=== PATIENT | male | born 1975 | race Caucasian/White ===

== ENCOUNTER 2025-03-16 06:32 | Outpatient (REF) | payer OTHER, SELFPAY ==
--- NOTE | ~2025-03-16 | XR_ITS ---
EXAMINATION: XR SHOULDER, LEFT CLINICAL INFORMATION: M25.512 - Pain in left shoulder COMPARISON: None available. TECHNIQUE: AP, scapular Y, and axillary views of the left shoulder. FINDINGS: There is no dislocation or AC joint separation. There are no degenerative changes. XR/XR shoulder LT min 2V IMPRESSION: Unremarkable left shoulder Electronically signed by: Fausto Zaragoza MD 03/16/2025 02:44 PM EDT
--- OUTSIDE RECORDS SUMMARY | 2025-03-17 06:35 | XMS_ITS | Clinical Summary ---
Author Organization [facility] Address [address] [place] [address] Phone Care Team Providers Care Chip Tuner Name Role Phone Bowen Serna MD Primary Care Provider [phone] Allergies Active Allergy Reactions Criticality Noted Date [...] 01/15/2021 Obstructive sleep apnea 01/15/2021 Overview (06/29/2024): [facility] Home Sleep Apnea Test: Date [...] Date Site/Laterality Comments OTHER SURGICAL HISTORY PROCEDURE: ND COLONOSCOPY FLX ABLATION TUMOR POLYP/OTHER LES OTHER [...] DX:Tubular adeno ma Substance abuse in remission ([facility] V24, [facility] V28) 07/29/2019 DX:Substance abuse in remiss ion ([facility]); COMMENT: Alcohol Depression 07/29/2019 DX:Depression GERD (gastroesophageal [...] AM EDT Office Visit Internal Medicine - [place] [address] [place] [address] Bowen Serna MD [address] [place] [address] Health Maintenance Due Date Last Done Comments [...] Maintenance Results * COLONOSCOPY Anesthesia - MAC; [facility] ENDOSCOPY (08/11/2024 9:38 AM EST) Anatomical Region Laterality Modality Endoscopy 08/11/2024 9:18 AM EST Impressions 08/11/2024 9:40 AM EST - Diverticulosis in the sigmoid colon. - Internal hemorrhoids. - The examination was otherwise normal. - No specimens collected. Recommendation: - Discharge patient to home. - Repeat colonoscopy in 10 years for surveillance. Narrative 08/11/2024 9:40 AM EST [facility] GI Patient Name: Lenard Mtz Procedure [...] verified by the physician, the nurse, the through freight engineer and the shale processing technician in the pre-procedure area in the [...] history of colonic polyps CPT copyright 2020 [employer]. All rights reserved. The codes documented in this report are preliminary and upon physical metallurgist review may be revised to meet current compliance requirements. Halchin Catherine MD 08/11/2024 9:40:26 AM This report has been signed electronically.Laurence Catherine MD Number of Addenda: 0 Note Initiated On: 08/11/2024 9:18 AM Scope Withdrawal Time: 0 hours 10 minutes 51 seconds Scope In: 9:24:25 AM Scope Out: 9:37:35 AM Endoscopy Department at [facility] - [address] [place] [id number] Procedure Note Laurence Catherine MD - 08/11/2024 [facility] Patient Name: Lenard Mtz Procedure [...] the physician, the nurse, theanesthetist and the shale processing technician in the pre-procedure area in the [...] history of colonic polyps CPT copyright 2020 [employer]. All rights reserved. The codes documented in this report are preliminary and upon physical metallurgist reviewmay be revised to meet current compliance requirements. Laurence Cathreine MD 08/11/2024 9:40:26 AM This report has been signed electronically.Laurence Catherine MD Number of Addenda: 0 Note Initiated On: 08/11/2024 9:18 AM Scope Withdrawal Time: 0 hours 10 minutes 51 seconds Scope In: 9:24:25 AM Scope Out: 9:37:35 AM Endoscopy Department at [facility] - [address] [place] [phone] IMPRESSION: - Diverticulosis in the sigmoid colon. - Internal hemorrhoids. - The examination was otherwise normal. - No specimens collected. Recommendation: - Discharge patient to home. - Repeat colonoscopy in 10 years forsurveillance. Laurence Catherine MD GI~PROCEDURE ORDERABLES Fin al Result * Annual [facility] Blood Test (04/23/2024) Annual [facility] Blood Test abstracted Historical Provider HEALTH MAINTENANCE Final Result * (ABNORMAL) Lipid panel (04/23/2024) Pathologist [facility] [place] LDL/HDL Ratio 4 0 - 4 Triglycerides 163(A) 0 - 150 mg/dL Cholesterol 188 0 - 200 mg/dL HDL 53 >=40 mg/dL LDL Cholesterol 103(A) 0 - 100 mg/dL Blood Venous blood specimen / Unknown [facility] Provider LAB BLOOD ORDERABLES Brea l Result * HIV Screening (10/09/2019) Pathologist [facility] [place] HIV Screening abstracted [facility] Provider HEALTH MAINTENANCE Final Result * Hepatitis C Screening (10/09/2019) [facility] Hepatitis C Screening abstracted [facility] Provider HEALTH MAINTENANCE Final Result from Last 3 Months or Most Recently Relevant to Health Maintenance Insurance PLAN Care Teams Chip Tuner Relationship Specialty Start Date End Date Bowen Serna MD PCP - General Internal Medicine 10/15/21
--- OUTSIDE RECORDS SUMMARY | 2025-03-17 06:35 | XMS_ITS | Encounter Summary ---
Author Organization [facility] Address [address] [place] [address] [address] [place] [address] Care Team Providers Care Stock Supervisor Name Role Phone Unavailable Primary Care Provider Unavailabl e Reason for Visit * Reason Onset Date Comments Appointment 07/14/2023 Encounter Details Date Type Department Care Team (Late st Contact Info) Description 07/14/2023 Telephone [facility] [address], [place] [phone] Lenard Carrillo DDS [address], [place] [phone] Appointment Social History Tobacco Use Types Packs/Day [...]
== END 2025-03-16 06:33 | disposition home or self-care (01) ==
LOC: HO.HOSX 06:32
PROVIDERS: Visit Provider Physician Assistant
DX: M25.512 Pain in left shoulder (principal); M75.22 Bicipital tendinitis, left shoulder
CPT/HCPCS: 73030; 99202

== ENCOUNTER 2025-03-16 08:28 | Outpatient (AMB) | payer OTHER, SELFPAY ==
--- NOTE | 2025-03-16 08:31 | MHC.OFFVIS ---
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 Patient was seen at [facility] for bilateral shoulder pain with the left being the worse. Today patient reports having a pinching sensation in his cuff area that has been present for 2 months. Denies any injury. He has tried icing and heat to alleviate his discomfort. No other treatments. 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 He denies injury, states he has pain with reaching and lifting the arm . He was seen at the urgent care and given naprosyn which he states has been helpful but he continues to have some discomfort. His pain was worse with sleeping and the medication helps. 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 5/5 rotator cuff strength neurovascularly intact. Results Reviewed Results Reviewed: X-rays of the left shoulder obtained in the office today and reviewed by me show a type 2 acromion Assessment & Plan Assessment & Plan (1) Biceps tendonitis on left: Code(s): M75.22 - Bicipital tendinitis, left shoulder Category: Medical Plan: Overall the patient is improving since his injury. I recommend he continue to modify activities as needed and I switched his naproxen over to Celebrex to help with his stomach irritation. I did recommend formal physical therapy which he declined at this time. If symptoms persist or worsen he can contact our office and I will write him a formal physical therapy order otherwise he will follow up as needed. Orders: Orders XR shoulder LT min 2V Today M25.512 - Pain in left shoulder Medications: New celecoxib (Celebrex) 200 mg PO BID 60 caps 3RF 30 days Coding Level of Care Code New Pt Level 3 (10528) Complex EM visit Add On G2211 Diagnoses Biceps tendonitis on left M75.22
--- OUTSIDE RECORDS SUMMARY | 2025-03-16 08:32 | XMS_ITS | Encounter Summary ---
Author Organization [facility] Address [address] [place] [address] [address] [place] [address] Care Team Providers Care High Density Talc Coater Operator Name Role Phone Unavailable Primary Care Provider Unavailabl e Reason for Visit * Reason Onset Date Comments Appointment 07/14/2023 Encounter Details Date Type Department Care Team (Late st Contact Info) Description 07/14/2023 Telephone [facility] [address] [place], [place] [id number] Lenard Carrillo DDS [address], [place] [id number] Appointment Social History Tobacco Use Types Packs/Day Years Used Date Smoking Tobacco: Former Cigarettes Smokeless Tobacco: Never Sex and Gender Information Value Date Recorded Sex Assigned at Male 07/15/2022 10:38 AM EDT Legal Sex Male 10:38 AM EDT Gender Identity Male 07/15/2022 10:38 AM EDT Sexual Orientation Straight 07/15/2022 10 :38 AM EDT documented as of this encounter Miscellaneous Notes * Telephone Encounter - Medina Van - 07/14/2023 11:14 AM EDT Patient has been calling off and on for extraction appt with Dr Carrillo. Schedule currently full. Appt has been requested since April. They state they haven't gotten a call back for scheduling. Reminded patient to call in about 2 weeks on a Friday to see if schedule has opened. Informed patient I would reach out to office with message documented in this encounter Plan of Treatment Not on file documented as of this encounter Visit Diagnoses Not on filedocumented in this encounter
--- OUTSIDE RECORDS SUMMARY | 2025-03-16 08:32 | XMS_ITS | Clinical Summary ---
Author Organization [facility] Address [address] [place] [address] Phone Care Team Providers Care Windows Vmware Engineer Name Role Phone Bowen Serna MD Primary Care Provider [phone] Allergies Active Allergy Reactions Criticality Noted Date Comments Grass Pollen 07/31/2021 Positive blood work Medications azelastine (ASTELIN) 137 mcg (0.1 %) nasal spray 2 Sprays by Each Nare route 2 times daily. Use in each nostril as directed 1 Active fexofenadine (JACKSON) 180 mg tablet Take 1 tablet (180 mg total) by mouth 1 (one) time each day. 1 Active ketotifen (ZADITOR) 0.025 % ophthalmic solution Place 1 Drop into both eyes 2 times daily as needed (itch or tear). 1 Active ibuprofen (ADVIL,MOTRIN) 600 mg tablet Take 1 Tab by mouth 2 times daily (with meals). 0 Active polyethylene glycol (Golytely) 236-22.74-6.74 -5.86 gram solution Take 4L by mouth once for one dose. May substitue any PEG. Starting at 6PM the night before your procedure drink 1 8oz glasses at your own pace until you complete half of the gallon. Finish 2nd half of the gallon 5 hours before your procedure. 4000 mL 4 Active bisacodyL (DULCOLAX) 5 mg EC tablet Take 2 tablets by mouth right before beginning bowel prep. See instructions provided by the office 2 tablet 4 Active amLODIPine-jeimy zepril (LOTREL) 5-10 mg per capsule TAKE 1 CAPSULE BY MOUTH EVERY DAY 90 capsule 1 5 Active Active Problems Problem Noted Date Diagnosed Date Tubular adenoma 06/29/2024 Precordial pain 06/05/2022 Left-sided back pain 05/31/2022 Rupture of flexor tendon of right hand 2 Nocturnal hypoxemia 01/15/2021 Obstructive sleep apnea 01/15/2021 Overview (06/29/2024): [facility] Home Sleep Apnea Test: Date 01/02/2021; Wt 215#; BMI 36; JAGDEEP (AHI) 66, AI 50; HI 17; Unclassified apneas 0; Obstructive apneas 387; Central apneas 0; Mixed apneas 0; hypopneas 129; average oxygen saturation 90% (lowest 68% with saturations <88% for 5% or more of study) - Obstructive Sleep Apnea - severe; mostly obstructive apneas and hypopneas; with sleep related hypoventilation by 2020 home sleep apnea test. 04/13/2021 UPPP and tonsillectomy with ENT. Pending Deviated nasal septum surgery July 2021. Hypertension 07/07/2020 Obesity (BMI 30.0-34.9) 07/07/2020 Dermatographia 03/13/2020 Pruritus 03/13/2020 Abnormal TSH 10/27/2019 Overview (06/29/2024): Needs repeat blood work in April 2020-blood work requested. No indication for levothyroxine Anxiety 07/29/2019 Depression 07/29/2019 GERD (gastroesophageal reflux disease) 9 IBS (irritable bowel syndrome) 07/29/2019 Premature ejaculation 07/29/2019 Substance abuse in remission (CMS/HCC V24, CMS/H CC V28) 07/29/2019 Overview (06/29/2024): Alcohol Immunizations Name Administration Dates Next Due Td Tetanus diptheria (Tdvax) 7yo and older 06/26 Tdap Tetanus diptheria acell ular pertussis (Boostrix; Adacel) 7yo and older 09/06/2016 Surgical History Surgery Date Site/Laterality Comments OTHER SURGICAL HISTORY PROCEDURE: [place] COLONOSCOPY FLX ABLATION TUMOR POLYP/OTHER LES OTHER SURGICAL HISTORY PROCEDURE: ---- HEMORRHOIDS ---- OTHER SURGICAL HISTORY PROCEDURE: HISTORY OTHER; COMMENT: septoplasty and reduction of inferior turbinates 08/01/[address] Curiel TENDON REPAIR Right HAND TONSILLECTOMY Medical History Medical History Date Comments Hemorrhoid DX:Hemorrhoid IBS (irritable bowel syndrome) 07/29/2019 D X:IBS (irritable bowel syndrome) Premature ejaculation 07/29/2019 DX:Prematu re ejaculation Tubular adenoma DX:Tubular adeno ma Substance abuse in remission ([facility] V24, [facility] V28) 07/29/2019 DX:Substance abuse in remiss ion ([facility]); COMMENT: Alcohol Depression 07/29/2019 DX:Depression GERD (gastroesophageal reflux disease) 9 DX:GERD (gastroesophageal reflux disease) Anxiety 07/29/2019 DX:Anxiety CYNDI on CPAP Hypertension Family History Medical History Relation Name Comments Colon polyps Brother Lung cancer Brother nose cancer Diabetes Father Alcohol Abuse, age 56, kidney problem No Known Problems Maternal Grandfather No Known Problems Maternal Grandmother Hypertension Mother Depression/anxi ety/glaucoma No Known Problems Other No Known Problems Paternal Grandfather No Known Problems Paternal Grandmother Thyroid disease Sister he is not tuttle re if hyper or hypo Breast cancer Neg Hx Relation Name Status Comments Brother Alive Father Maternal Grandfather Alive Maternal Grandmother Mother Alive Other Paternal Grandfather Paternal Grandmother Sister Alive Social History Tobacco Use Types Packs/Day Years Used Date Smoking Tobacco: Former Cigarettes Q uit: 09/15/2015 Smokeless Tobacco: Never Alcohol Use Standard Drinks/Week Comments No 0 (1 standard drink = 0.6 oz pur e alcohol) Interpersonal Safety Answer Date Record ed Physical Abuse 08/11/2024 Verbal Abuse 08/11/2024 Sex and Gender Information Value Date Recorded Sex Assigned at Not on file Legal Sex Male 4:51 AM EST Gender Identity Not on file Sexual Orientation Not on file Obstetrics History Last Filed Vital Signs Vital Sign Reading Time Taken Comments Blood Pressure 100/62 08/11/2024 9:59 AM EST Pulse 85 08/11/2024 9:59 AM EST Temperature 36.6 C (97.8 F) 08/11/2024 9:39 AM EST Respiratory Rate 19 08/11/2024 9:59 AM EST Oxygen Saturation 96% 08/11/2024 9:59 AM EST Inhaled Oxygen Concentration - - Weight 99.8 kg (220 lb) 08/11/2024 8:35 AM EST Height 165.1 cm (5' 5 ) 08/11/2024 8:35 AM EST Body Mass Index 36.61 08/11/2024 8:35 AM EST Plan of Treatment Upcoming Encounters Date Type Department Care Team (Late st Contact Info) Description 05/10/2025 9:00 AM EDT Office Visit Internal Medicine - [place] [address] [facility] [address] [place] [phone] Bowen Serna MD [address] [facility] [address] [place] [address] Health Maintenance Due Date Last Done Comments Hepatitis A Vaccines (1 of 2 - Risk 2-dose series) 1994 Hepatitis B Vaccines (1 of 3 - 19+ 3-dose series) 1994 Depression Screening 08/24/2022 Social Influencers of Health Screening 08/24/2022 COVID-19 Vaccine ( - 2023-2 5 season) 2024 Hypertension/CHF/CAD Annual BMP Blood Test 04/23/2025 04/23/2024, 04/23/2024 Influenza Vaccine (#1) 2025 DTaP,Tdap,and Td Vaccines (3 - Td or Tdap) 09/06/2026 09/06/2016, 06/26/2001 Cholesterol Screening (Lipid Panel) 04/23/2029 04/23/2024, 04/23/2024 Colorectal Cancer Screening: Colonoscopy 08/11/2034 08/11/2024 HIV Screening Completed 10/09/2019 Hepatitis C Screening Completed 10/09/2019 HIB Vaccines Aged Out No longer eligi ble based on patient's age to complete this topic HPV Vaccines Aged Out No longer eligi ble based on patient's age to complete this topic IPV Vaccines Aged Out No longer eligi ble based on patient's age to complete this topic MMR Vaccines Aged Out No longer eligi ble based on patient's age to complete this topic Meningococcal ACWY Vaccine Aged Out N o longer eligible based on patient's age to complete this topic Meningococcal B Vaccine Aged Out No l onger eligible based on patient's age to complete this topic Pneumococcal Vaccine: Pediatrics (0 to 5 Years) and At-Risk Patients (6 to 64 Years) Aged Out No longer eligible b ased on patient's age to complete this topic RSV Immunization Patients Under 20 months Aged Out No longer eligible b ased on patient's age to complete this topic Varicella Vaccines Aged Out No longer eligible based on patient's age to complete this topic Procedures Procedure Name Priority Date/Time Associated Diagnosis Comments COLONOSCOPY Routine 08/11/2024 9:38 AM EST Personal history of colon polyps, unspecified ANNUAL BMP BLOOD TEST Routine 04/23/2024 LIPID PANEL Routine 04/23/2024 HEPATITIS C SCREENING Routine 10/09/2019 HIV SCREENING Routine 10/09/2019 from Last 3 Months or Most Recently Relevant to Health Maintenance Results * COLONOSCOPY Anesthesia - MAC; [facility] ENDOSCOPY (08/11/2024 9:38 AM EST) Anatomical Region Laterality Modality Endoscopy 08/11/2024 9:18 AM EST Impressions 08/11/2024 9:40 AM EST - Diverticulosis in the sigmoid colon. - Internal hemorrhoids. - The examination was otherwise normal. - No specimens collected. Recommendation: - Discharge patient to home. - Repeat colonoscopy in 10 years for surveillance. Narrative 08/11/2024 9:[address] [facility] GI Patient Name: Lenard Mtz Procedure Date: 08/11/2024 9:18 AM Date of : 1975 Age: 49 Gender: Male Note Status: Finalized Attending MD: Laurence Catherine MD, Procedure Date No Time: 08/11/2024 Procedure: Colonoscopy Indications: High risk colon cancer surveillance: Personal history of colonic polyps Providers: Laurence Catherine MD Referring MD: Laurence Catherine MD Medicines: Monitored Anesthesia Care Complications: No immediate complications. Estimated Blood Loss: Estimated blood loss: none. Procedure: Pre-Anesthesia Assessment: - Prior to the procedure, a History and Physical was performed, and patient medications and allergies were reviewed. The patient is competent. The risks and benefits of the procedure and the sedation options and risks were discussed with the patient. All questions were answered and informed consent was obtained. Patient identification and proposed procedure were verified by the physician, the nurse, the ship fitter and the chemical production technician in the pre-procedure area in the endoscopy suite. Mental Status Examination: alert and oriented. Airway Examination: normal oropharyngeal airway and neck mobility. Respiratory Examination: clear to auscultation. CV Examination: normal. Prophylactic Antibiotics: The patient does not require prophylactic antibiotics. Prior Anticoagulants: The patient has taken no anticoagulant or antiplatelet agents. ASA Grade Assessment: III - A patient with severe systemic disease. After reviewing the risks and benefits, the patient was deemed in satisfactory condition to undergo the procedure. The anesthesia plan was to use monitored anesthesia care (MAC). Immediately prior to administration of medications, the patient was re-assessed for adequacy to receive sedatives. The heart rate, respiratory rate, oxygen saturations, blood pressure, adequacy of pulmonary ventilation, and response to care were monitored throughout the procedure. The physical status of the patient was re-assessed after the procedure. After I obtained informed consent, the scope was passed under direct vision. Throughout the procedure, the patient's blood pressure, pulse, and oxygen saturations were monitored continuously. The Colonoscope was introduced through the anus and advanced to the cecum, identified by appendiceal orifice and ileocecal valve. The colonoscopy was performed without difficulty. The patient tolerated the procedure well. The quality of the bowel preparation was good. Findings: The perianal and digital rectal examinations were normal. A few small-mouthed diverticula were found in the sigmoid colon. Internal hemorrhoids were found during retroflexion. The hemorrhoids were Grade II (internal hemorrhoids that prolapse but reduce spontaneously). The exam was otherwise without abnormality. Procedure Code(s): --- Professional --- G0105, Colorectal cancer screening; colonoscopy on individual at high risk Diagnosis Code(s): --- Professional --- Z86.010, Personal history of colonic polyps CPT copyright 2020 [employer]. All rights reserved. The codes documented in this report are preliminary and upon outpatient coder review may be revised to meet current compliance requirements. Halchin Catherine MD 08/11/2024 9:40:26 AM This report has been signed electronically.Laurence Catherine MD Number of Addenda: 0 Note Initiated On: 08/11/2024 9:18 AM Scope Withdrawal Time: 0 hours 10 minutes 51 seconds Scope In: 9:24:25 AM Scope Out: 9:37:35 AM Endoscopy Department at [facility] - [address] [place] [id number] Procedure Note Laurence Catherine MD - 08/11/2024 [facility] GI Patient Name: Lenard Mtz Procedure Date: 08/11/2024 9:18 AM Date of : 1975 Age: 49 Gender: Male Note Status: Finalized Attending MD: Laurence Catherine MD, Procedure Date No Time: 08/11/2024 Procedure: Colonoscopy Indications: High risk colon cancer surveillance: Personalhistory of colonic polyps Providers: Laurence Catherine MD Referring MD: Laurence Catherine MD Medicines: Monitored Anesthesia Care Complications: No immediate complications. Estimated Blood Loss: Estimated blood loss: none. Procedure: Pre-Anesthesia Assessment: - Prior to the procedure, a History and Physicalwas performed, and patient medications and allergieswere reviewed. The patient is competent. The risks and benefits of the procedure and the sedation optionsand risks were discussed with the patient. Allquestions were answered and informed consent was obtained. Patient identification and proposed procedure were verified by the physician, the nurse, theanesthetist and the chemical production technician in the pre-procedure area in the endoscopy suite. Mental Status Examination: alertand oriented. Airway Examination: normal oropharyngeal airway and neck mobility. Respiratory Examination: clear to auscultation. CV Examination: normal. Prophylactic Antibiotics: The patient does notrequire prophylactic antibiotics. Prior Anticoagulants: The patient has taken no anticoagulant or antiplatelet agents. ASA Grade Assessment: III - A patient with severe systemic disease. After reviewing the risksand benefits, the patient was deemed in satisfactory condition to undergo the procedure. The anesthesia plan was to use monitored anesthesia care (MAC). Immediately prior to administration of medications, the patient was re-assessed for adequacy to receive sedatives. The heart rate, respiratory rate, oxygen saturations, blood pressure, adequacy of pulmonary ventilation, and response to care were monitored throughout the procedure. The physical status ofthe patient was re-assessed after the procedure. After I obtained informed consent, the scope was passed under direct vision. Throughout theprocedure, the patient's blood pressure, pulse, and oxygen saturations were monitored continuously. The Colonoscope was introduced through the anus and advanced to the cecum, identified by appendiceal orifice and ileocecal valve. The colonoscopy was performed without difficulty. The patient tolerated the procedure well. The quality of the bowel preparation was good. Findings: The perianal and digital rectal examinations were normal. A few small-mouthed diverticula were found in the sigmoid colon. Internal hemorrhoids were found duringretroflexion. The hemorrhoids were Grade II (internal hemorrhoids that prolapse but reduce spontaneously). The exam was otherwise without abnormality. Procedure Code(s): --- Professional --- G0105, Colorectal cancer screening; colonoscopy on individual at high risk Diagnosis Code(s): --- Professional --- Z86.010, Personal history of colonic polyps CPT copyright 2020 [employer]. All rights reserved. The codes documented in this report are preliminary and upon outpatient coder reviewmay be revised to meet current compliance requirements. Laurence Catherine MD 08/11/2024 9:40:26 AM This report has been signed electronically.Laurence Catherine MD Number of Addenda: 0 Note Initiated On: 08/11/2024 9:18 AM Scope Withdrawal Time: 0 hours 10 minutes 51 seconds Scope In: 9:24:25 AM Scope Out: 9:37:35 AM Endoscopy Department at [facility] - [address] [place] [id number] IMPRESSION: - Diverticulosis in the sigmoid colon. - Internal hemorrhoids. - The examination was otherwise normal. - No specimens collected. Recommendation: - Discharge patient to home. - Repeat colonoscopy in 10 years forsurveillance. Laurence Catherine MD GI~PROCEDURE ORDERABLES Fin al Result * Annual [facility] Blood Test (04/23/2024) Annual [facility] Blood Test abstracted Historical Provider HEALTH MAINTENANCE Final Result * (ABNORMAL) Lipid panel (04/23/2024) Pathologist [facility] LDL/HDL Ratio 4 0 - 4 Triglycerides 163(A) 0 - 150 mg/dL Cholesterol 188 0 - 200 mg/dL HDL 53 >=40 mg/dL LDL Cholesterol 103(A) 0 - 100 mg/dL Blood Venous blood specimen / Unknown [facility] Provider LAB BLOOD ORDERABLES Brea l Result * HIV Screening (10/09/2019) Pathologist [facility] HIV Screening abstracted [facility] Provider HEALTH MAINTENANCE Final Result * Hepatitis C Screening (10/09/2019) [facility] Hepatitis C Screening abstracted [facility] Provider HEALTH MAINTENANCE Final Result from Last 3 Months or Most Recently Relevant to Health Maintenance Insurance PLAN Care Teams Windows Vmware Engineer Relationship Specialty Start Date End Date Bowen Serna MD PCP - General Internal Medicine 10/15/21
[2025-03-16 08:53] VITALS: BMI 35.5
== END 2025-03-16 09:07 | disposition home or self-care (01) ==
PROVIDERS: Visit Provider Physician Assistant
DX: M75.22 Bicipital tendinitis, left shoulder (principal)
CPT/HCPCS: 99203

== ENCOUNTER → 2025-03-16 08:37 | Outpatient (BNV) | payer OTHER, SELFPAY | PROVIDERS: Visit Provider Radiology Diagnostic Radiology | DX: M25.512 Pain in left shoulder (principal) | CPT/HCPCS: 73030 ==